=== PATIENT | female | born 1985 | race Caucasian/White ===

== ENCOUNTER 2017-07-12 13:21 | Outpatient (CLI) | payer OTHER ==
--- NOTE | 2017-07-12 17:21 | CT ---
ABDOMEN CT WITHOUT CONTRAST PELVIC CT WITHOUT CONTRAST: Date: 07/12/17 HISTORY: Left flank pain. Evaluate for renal calculi. Symptoms x1 day. COMPARISON: 08/10/16. TECHNIQUE: An abdomen and pelvis CT are performed without IV or oral contrast. Coronal reformatted images are abraham bmitted for interpretation. FINDINGS: ABDOMEN CT: Visualized lung bases are clear. Limited evaluation of the solid organs by the lack of IV contrast. G rossly, no solid organ abnormality. Gallbladder is unremarkable. No gastrohepatic, retrocrural, or periportal lymphadenopathy. There are nonspecific, nonenlarged mesenteric lymph nodes. No mass, lymphadenopathy, or free air. Ventral abdominal hernia containing mesenteric fat is noted. No bowel herniation. The aforementioned hernia is very small. Bilaterally, no hydronephrosis or perinephric fat stranding. Punctate nonobstructing calculus in the right kidney measuring approximately 1.0 mm. Bilateral ureters have a normal caliber. No hydroureter, periureteral fat stranding, or ureterolithiasis. Limited evaluation of the alimentary canal due to lack of oral contrast. No evidence of bowel obstruc tion. Ileocecal junction is normal. Normal caliber appendix. Fecal material in a nondistended, nondil ated colon. CT evidence of diverticulosis without evidence of diverticulitis. PELVIC CT: Uterus and adnexa are unremarkable. No calcification in urinary bladder. No pelvic mass, lymphadenopa thy, free air, or free fluid. There are no osteoblastic or osteolytic lesions. IMPRESSION: 1. Nonobstructing 1.0 mm calcification in the right intrarenal collecting system. Bilaterally, no ev idence of obstructive uropathy. 2. Normal caliber appendix. POS: [facility]
== END 2017-07-12 13:22 | disposition home or self-care (01) ==
LOC: CT 13:21
PROVIDERS: ATTEND Family Medicine
DX: R10.9 Unspecified abdominal pain (principal)
CPT/HCPCS: 74176

== ENCOUNTER 2017-08-19 10:34 | Day surgery (SDC) | payer OTHER ==
[2017-08-18 09:41] VITALS: BMI 27.4
--- NOTE | 2017-08-19 14:10 | OP ---
DATE OF PROCEDURE: 08/19/2017 PROCEDURES PERFORMED: 1. Esophagogastroduodenoscopy. 2. Colonoscopy. POSTPROCEDURE DIAGNOSES: 1. Normal upper endoscopy, normal esophagus, stomach, and duodenum. 2. Normal ileum. 3. Normal colon exam. PREMEDICATION: Given by Anesthesiology Department. PREPROCEDURE DIAGNOSES: Chronic left-sided abdominal pain, gastroesophageal reflux disease, normal u ltrasound and abdominal pelvic CT. PROCEDURE IN DETAIL: Written consent was obtained prior to procedure. After adequate sedation, the forward-viewing endoscope was advanced down the stomach under direct vision to the second portion of duodenum. Both the second portion and the bulb appeared normal. The third portion was also visualiz ed and appeared normal. The pylorus was patent. The gastric antrum, body, fundus, and cardia all ap peared normal. Retroflexion did not show any abnormality. The GE junction and esophagus appeared no rmal. Z-line was noted at 41 cm. The patient was then repositioned for colon exam. A digital exam performed was normal. The quality of the bowel prep was good. The endoscope was advanced to the distal ileum. The terminal ileum appe ared normal. The ileocecal valve and appendiceal orifice were visualized and appeared normal. The c ecum, ascending colon, hepatic flexure, transverse colon, splenic flexure, descending colon, and rect osigmoid colon all appeared normal. Retroflexion did not show any abnormality. ASSESSMENT: 1. Normal upper endoscopy. 2. Normal ileal colonoscopy. PLAN: 1. Trial of antispasmodic dicyclomine 10 mg t.i.d. and low dose amitriptyline 10 mg at bedtime. 2. Follow up in GI office in 4 weeks.
[2017-08-19] MEDS ORDERED: Lidocaine 1% PF 5 ML VIAL ONE (15:20)
[2017-08-19] MEDS ORDERED: Propofol 200 MG/20 ML VIAL ONE (15:20)
== END 2017-08-19 13:54 | disposition home or self-care (01) ==
LOC: SDC 10:34
PROVIDERS: ATTEND Internal Medicine Gastroenterology
PROC: 0DJD8ZZ Inspection of Lower Intestinal Tract, Via Natural or Artificial Opening Endoscopic (ICD-10-PCS; principal; 2017-08-19)
PROC: 0DJ08ZZ Inspection of Upper Intestinal Tract, Via Natural or Artificial Opening Endoscopic (ICD-10-PCS; principal; 2017-08-19)
DX: R10.12 Left upper quadrant pain (principal); K21.9 Gastro-esophageal reflux disease without esophagitis; Z88.1 Allergy status to other antibiotic agents; Z88.8 Allergy status to other drugs, medicaments and biological substances; Z79.899 Other long term (current) drug therapy; Z90.89 Acquired absence of other organs; Z98.890 Other specified postprocedural states
CPT/HCPCS: J2001; J2704

== ENCOUNTER 2017-11-05 14:53 | Outpatient (CLI) | payer OTHER | END 2017-11-05 14:54 | disposition home or self-care (01) | LOC: BICMAMMO 14:53 | PROVIDERS: ATTEND Obstetrics & Gynecology | DX: N63.20 Unspecified lump in the left breast, unspecified quadrant (principal); Z80.3 Family history of malignant neoplasm of breast | CPT/HCPCS: 77066; G0279 ==

== ENCOUNTER 2018-02-25 14:34 | Outpatient (CLI) | payer OTHER ==
--- NOTE | 2018-02-25 15:16 | ULT ---
THYROID ULTRASOUND: Date: 02/25/18 COMPARISON: 02/05/17. HISTORY: Multinodular goiter. TECHNIQUE: Multiplanar Hinojosa scale and color Doppler images were obtained in a thyroid ultrasound. FINDINGS: There are tiny nodules scattered throughout both thyroid lobes. None of these are larger than 1.0 cm in size. The largest nodule is seen on the right measuring 8.0 mm in greatest dimension. These nodule s are well circumscribed and without suspicious calcifications. The thyroid lobes each measure 3.8 cm in length. IMPRESSION: Stable small thyroid nodules. POS: [facility]
== END 2018-02-25 14:35 | disposition home or self-care (01) ==
LOC: SCSULT 14:34
PROVIDERS: ATTEND Specialist
DX: E04.2 Nontoxic multinodular goiter (principal)
CPT/HCPCS: 76536

== ENCOUNTER 2018-05-20 15:56 | Outpatient (CLI) | payer OTHER ==
--- NOTE | 2018-05-20 17:33 | MRI ---
CERVICAL SPINE MRI WITHOUT CONTRAST: 05/20/18 HISTORY: Cervical radiculopathy. COMPARISON: None. TECHNIQUE: Cervical spine MRI is performed without intravenous gadolinium administration. Multisequential, multi planar imaging is performed. FINDINGS: Straightening of the normal cervical lordosis. Findings may be due to patient position or muscle spas m. No evidence of ligamentous injury. No evidence of vertebral body edema. No fracture. Appropriate T1 marrow signal intensity of the cervical vertebrae. The visualized brain parenchyma, ce rvicomedullary junction, cervical cord, and the upper thoracic cord have a normal size and signal int ensity. C2-C3: No significant disc osteophyte complex. No significant central canal stenosis. Foramina are pa tent. C3-C4: No significant disc osteophyte complex. No significant central canal stenosis. Foramina are pa tent. C4-C5: No significant disc osteophyte complex. No significant central canal stenosis. Foramina are pa tent. C5-C6: There is minimal loss of disc space height. Minimal generalized disc bulge without significant central canal stenosis. Neural foramina are patent. C6-C7: No significant disc osteophyte complex. No significant central canal stenosis. Neural foramina are patent. C7-T1: No significant disc osteophyte complex. No significant central canal stenosis. Neural foramina are patent. IMPRESSION: No significant central canal stenosis or foraminal narrowing. POS: [facility]
== END 2018-05-20 15:57 | disposition home or self-care (01) ==
LOC: MRI 15:56
PROVIDERS: ATTEND Orthopaedic Surgery
DX: M54.12 Radiculopathy, cervical region (principal)
CPT/HCPCS: 72141

== ENCOUNTER 2019-07-09 11:48 | Emergency (ER) | payer OTHER ==
[2019-07-09 12:22] LABS: Bilirubin Negative (Negative); Blood, Urine Large (Negative); Glucose, Urine (Dipstick) Negative (Negative); Leukocyte Negative (Negative); Nitrite Negative (Negative); Protein, Urine (Dipstick) Negative (Neg-Trace); Urobilinogen 0.2 mg/dL (Less than 2)
[2019-07-09 12:24] LABS: #Basophils 0.1 thou/uL (0.0-0.2); #Eosinphils 0.1 thou/uL (0.0-0.7); #Lymphocytes 1.8 thou/uL (1.20-3.40); #Monocytes 0.4 thou/uL (0.11-0.59); #Neutrophils 3.5 thou/uL (1.40-6.50); %Basophils 1.4 % (0.0-1.0); %Eosinophils 1.2 % (0.0-10.0); %Lymphocytes 30.3 % (21.0-51.0); %Monocytes 7.2 % (0.0-10.0); %Neutrophils 59.9 % (42.0-75.0); Hemoglobin 12.8 g/dL (12.0-16.0); Mean Corpuscular HGB CONC 33.8 g/dL (32.0-36.0); Mean Corpuscular Hemoglobin 31.1 pg (27.0-31.0); Mean Platelet Volume 11.5 fL (7.4-10.4); Platelet Count 152 thou/uL (130-400); White Blood Cell (WBC) Count 5.9 thou/uL (4.8-10.8)
[2019-07-09 12:28] LABS: Clarity Hazy (Clear)
[2019-07-09 12:29] LABS: Bacteria/HPF Rare-Few HPF (None Seen); WBC/HPF None Seen HPF (0-3)
--- NOTE | 2019-07-09 13:41 | ULT ---
US Pelvic Transvag, and Transabdominal HISTORY: Vaginal bleeding COMPARISON: None TECHNIQUE: Multiple grayscale and color Doppler images were obtained in a transabdominal and transvag inal pelvic ultrasound. Spectral analysis of the Doppler waveforms of the ovaries were performed. FINDINGS: UTERUS: Normal in size without focal abnormality. ENDOMETRIAL STRIPE: 5 mm. No free fluid is present. Mild prominence of pelvic vasculature, nonspecific. RIGHT OVARY: Normal flow, without focal mass. LEFT OVARY: Normal flow, without focal mass. IMPRESSION: No acute pelvic abnormality No evidence of intrauterine gestation. Therefore on the basis of this exam, ectopic cannot be excluded. Correlate with serial beta hCG values, as well as imaging follow-up for continued assessment.
== END 2019-07-09 14:25 | disposition home or self-care (01) ==
LOC: SCSER 11:48
DX: O20.0 Threatened abortion (principal); O99.611 Diseases of the digestive system complicating pregnancy, first trimester; K21.9 Gastro-esophageal reflux disease without esophagitis; Z3A.01 Less than 8 weeks gestation of pregnancy
CPT/HCPCS: 76856; 81003; 81015; 84702; 85025

== ENCOUNTER 2019-09-12 08:15 | Day surgery (SDC) | payer OTHER ==
[2019-09-04 16:46] VITALS: BMI 28.5
--- NOTE | 2019-09-11 08:41 | HP ---
REASON FOR ADMISSION: Chronic pelvic pain. SCHEDULED PROCEDURE: Diagnostic laparoscopy, possible excision of endometriosis. HISTORY OF PRESENT ILLNESS: Ms. Lyon is a 34-year-old, who has been my patient for greater than 10 years. She has had 2 vaginal deliveries and has a history of progressively worsening chronic pelvic pain. She desires diagnostic laparoscopy to rule out endometriosis. She previously had a CT scan last year, which revealed some kidney stones, but also dilated ovarian veins. Her history is somewhat concerning for endometriosis, but certainly may be more of a case of pelvic congestion syndrome as well. [employer] HISTORY: Noted. The patient had a history of dysplasia in the cervix, which is resolved. She uses for control and has had 2 spontaneous vaginal deliveries. PAST MEDICAL HISTORY: Significant for anxiety. PAST SURGICAL HISTORY: Vulvar resection, wisdom tooth, tonsils, and colonoscopy. ALLERGIES: NONE. MEDICATIONS: 1. Astelin. 2. Clotrimazole. 3. Nasacort. SOCIAL HISTORY: Denies tobacco, alcohol, or drug abuse. FAMILY HISTORY: Noncontributory for endometriosis. PHYSICAL EXAMINATION: GENERAL: White female. VITAL SIGNS: Height 5 feet 6 inches, weight 174, BMI 28. Blood pressure 116/80, pulse 100, and respirations 18. HEENT: Within normal limits. LUNGS: Clear to auscultation bilaterally. HEART: Regular rate and rhythm. BREASTS: No masses bilaterally. ABDOMEN: Soft and nontender. No rebound or guarding. : Vulvar lesions. Vagina, discharge. Cervix, parous. Uterus anteverted. No adnexal mass. Uterus, normal size. The patient is tender in the left adnexa in the left uterosacral area. No nodularity is noted. EXTREMITIES: No clubbing, cyanosis, or edema. IMPRESSION: Chronic pelvic pain, unresponsive to medical management with features concerning for endometriosis and/or pelvic congestion syndrome. PLAN: Diagnostic laparoscopy, possible excision of endometriosis. We will administer appropriate antibiotic and DVT prophylaxis. The patient understands risks and benefits of procedure including, negative findings, bleeding, infection, and injury to organs in the pelvis as well as incomplete removal of endometriosis. Job ID: [id number]
[2019-09-11 15:27] LABS: BHCG - Serum Negative (NEGATIVE); Pregs Control Background? CLEAR/WHITE (CLR/WHITE); Pregs Control Bar Appear? YES (CONTROL BAR)
[2019-09-11 15:30] LABS: Hemoglobin 12.7 g/dL (12.0-16.0); Mean Corpuscular HGB CONC 34.5 g/dL (32.0-36.0); Mean Corpuscular Hemoglobin 32.6 pg (27.0-31.0); Mean Corpuscular Volume 94.5 fL (78.0-98.0); Platelet Count 163 thou/uL (130-400); RBC Distribution Width 10.9 % (11.5-14.5); Red Blood Cell (RBC) Count 3.91 mill/uL (4.20-5.40); White Blood Cell (WBC) Count 6.2 thou/uL (4.8-10.8)
[2019-09-12] MEDS ORDERED: CeleCOXIB 100 MG CAP ONE (08:48)
[2019-09-12] MEDS ORDERED: Gabapentin 300 MG CAP ONE (08:48)
[2019-09-12] MEDS ORDERED: Famotidine/PF 20 mg/2ml Vial ONE (08:49)
[2019-09-12] MEDS ORDERED: Glycopyrrolate 0.2 MG/ML 5 ML SYRINGE ONE (09:36)
[2019-09-12] MEDS ORDERED: Lidocaine 1% PF 5 ML VIAL ONE (09:36)
[2019-09-12] MEDS ORDERED: Ondansetron PF 4 MG/2 ML Vial ONE (09:36)
[2019-09-12] MEDS ORDERED: PROPOFOL 200 MG/20 ML VIAL ONE (09:36)
[2019-09-12] MEDS ORDERED: Rocuronium Bromide 10 MG/ML (10ML VIAL) ONE (09:36)
[2019-09-12] MEDS ORDERED: Dexamethasone 20 MG/5 ML VIAL ONE (09:36)
[2019-09-12] MEDS ORDERED: Midazolam HCl 2 mg/2 ml Vial ONE (09:43)
[2019-09-12] MEDS ORDERED: Fentanyl 100 MCG/2 ML VIAL ONE (09:43)
[2019-09-12] MEDS ORDERED: Bupivacaine PF 0.5% 30 ML VIAL ONE (09:50)
[2019-09-12] MEDS ORDERED: HYDROcodone/Acetaminophen 5/325 mg Tablet ONE (13:28)
--- NOTE | 2019-09-13 09:06 | OP ---
DATE OF PROCEDURE: 09/12/2019 PREOPERATIVE DIAGNOSIS: Chronic pelvic pain, left greater than right with CT findings suggestive of chronic congestion syndrome of the pelvis. POSTOPERATIVE DIAGNOSES: Chronic pelvic pain, left greater than right with CT findings suggestive of chronic congestion syndrome of the pelvis plus visual documentation of left-sided pelvic congestion syndrome and possible right uterosacral ligament endometriosis. PROCEDURE PERFORMED: Diagnostic laparoscopy with laparoscopic excision of right uterosacral ligament lesion with da Pablo. ANESTHESIA: General endotracheal. ESTIMATED BLOOD LOSS: Less than 10 mL. COMPLICATIONS: None. DRAINS: Hoff to gravity. MEDICATIONS: 2 g Ancef preincision. OPERATIVE FINDINGS: 1. Normal-appearing omentum, liver edge, and bowel. 2. No evidence of endometriosis in the anterior cul-de-sac. 3. No evidence of endometriosis of the right ovarian fossa. 4. Red lesions consistent with possible early endometriosis of the uterosacral ligament on the right at its insertion into the cervix medial to the ureter, excised. 5. No evidence of endometriosis in the left side of the pelvis, but extensive varicosities consistent with pelvic congestion syndrome photodocumented. 6. No evidence of indirect or direct inguinal hernia laparoscopically. COUNTS: Correct with clear urine at the end of procedure. DISPOSITION: Recovery room in good condition. DESCRIPTION OF PROCEDURE: After obtaining appropriate informed consent, the patient was taken to the operating room, where general endotracheal anesthesia was achieved without difficulty. The patient was prepped and draped in dorsal lithotomy position in Emil stirrups. Sliding speculum was placed in vagina. Cervix was identified and grasped with single-tooth tenaculum, sounded to 7 cm. KENN manipulator without vaginal template checker cup was placed using a 6 cm obturator. Speculum and tenaculum were removed. Hoff catheter was placed and power sewing machine operator changed his gloves and turned attention to abdominal portion of procedure. A 5 mL of Marcaine was injected to the superior aspect of the umbilicus, and a 12 mm skin incision was made. Veress needle was placed inside the abdominal cavity. Insufflation was carried out with carbon dioxide at max pressure of 15, volume approximately 3.5 L. A 12 mm trocar was introduced into the abdominal cavity. At this level, the patient was placed in steep Trendelenburg position. The right and left lateral da Pablo 8 mm ports were placed under direct visualization. Survey of the abdomen and pelvis was carried out with findings as noted in the operative findings. Of note, there really was significant difference between the right and left to the degree of varicosities and congestion noted in the IP and broad ligament. No obvious abnormality accounting for this was noted, however. Thorough inspection of the pelvis was carried out and one area consistent with probable endometriosis was noted at the level of the insertion of the uterosacral ligament on the patient's right into this posterior aspect of the cervix. The ureter was well visualized to the peritoneum on the right. It was noted to be lateral to this area. Da Pablo robot was docked using monopolar scissors and [place] bipolar forceps. The peritoneum under this area was opened and excised. The specimen was removed and placed in the anterior cul-de-sac. Good hemostasis was noted. Again, the ureter was noted to be well lateral. No other areas for excision were noted. The da Pablo was undocked. The peritoneal incision specimen from the right uterosacral ligament was removed through the one of the lateral trocars, and the abdomen was desufflated of carbon dioxide x3. Trocars were removed. Fascia was reapproximated at the umbilicus using a 0 Vicryl on a UR5 needle. Skin was reapproximated x3 using 4-0 Monocryl and Dermabond. Hulka manipulator was removed. Hoff catheter was removed. The patient awakened and extubated to recovery room in good condition. Job ID: [id number]
== END 2019-09-12 14:21 | disposition home or self-care (01) ==
LOC: SDC 08:15
PROVIDERS: ATTEND Obstetrics & Gynecology
PROC: 0UB48ZZ Excision of Uterine Supporting Structure, Via Natural or Artificial Opening Endoscopic (ICD-10-PCS; principal; 2019-09-12)
DX: N83.8 Other noninflammatory disorders of ovary, fallopian tube and broad ligament (principal); G89.29 Other chronic pain; R10.2 Pelvic and perineal pain; F41.9 Anxiety disorder, unspecified; Z79.899 Other long term (current) drug therapy; Z91.048 Other nonmedicinal substance allergy status
CPT/HCPCS: 84703; 85027; 86850; 86900; 86901; 88305; J0690; J1100; J2001; J2250; J2405; J2704; J3010; S0020; S0028

== ENCOUNTER 2020-03-11 07:45 | Outpatient (CLI) | payer OTHER ==
--- NOTE | 2020-03-11 11:05 | MRI ---
BRAIN MRI WITHOUT CONTRAST: Date: 03/11/2020 COMPARISON: None. HISTORY: Tingling around the mouth for 2 weeks. Hemiparesthesia. TECHNIQUE: Multiplanar, multisequence MR imaging of the brain obtained without contrast. FINDINGS: The diffusion-weighted imaging demonstrates no evidence for acute infarction. No evidence for intracr anial hemorrhage is noted on the axial gradient echo imaging. The visualized paranasal sinuses/mastoid air cells demonstrate normal signal intensity. Arterial flow -voids at the axial level of the skull base appear grossly unremarkable on the T2-weighted imaging. No midline shift, mass effect, or ventricular enlargement. IMPRESSION: Unremarkable noncontrast enhanced brain MRI. POS: [facility]
== END 2020-03-11 07:46 | disposition home or self-care (01) ==
LOC: TBSIIMAG 07:45
PROVIDERS: ATTEND Family Medicine
DX: R20.2 Paresthesia of skin (principal)
CPT/HCPCS: 70551

== ENCOUNTER 2021-05-19 11:27 | Outpatient (CLI) | payer OTHER | END 2021-05-19 11:28 | disposition home or self-care (01) | LOC: BICRAD 11:27 | PROVIDERS: ATTEND Family Medicine | DX: M25.552 Pain in left hip (principal) | CPT/HCPCS: 72170 ==

== ENCOUNTER 2023-08-24 11:13 | Outpatient (CLI) | payer OTHER | END 2023-08-24 11:14 | disposition home or self-care (01) | LOC: SCSRAD 11:13 | PROVIDERS: ATTEND Family Medicine | DX: R05.9 Cough, unspecified (principal) | CPT/HCPCS: 71046 ==

== ENCOUNTER 2024-09-01 12:45 | Outpatient (CLI) | payer BC ==
[2024-09-01] MEDS ORDERED: Sincalide 5 MCG VIAL ONE (13:58)
[2024-09-01] MEDS ORDERED: Sterile Water 10 ML ONE (13:59)
[2024-09-01] MEDS ORDERED: Bacteriostatic Normal Saline 30 ML VIAL ONE (13:59)
== END 2024-09-01 12:46 | disposition home or self-care (01) ==
LOC: NM 12:45
PROVIDERS: ATTEND Internal Medicine Gastroenterology
DX: R10.13 Epigastric pain (principal); R07.9 Chest pain, unspecified
CPT/HCPCS: 78227; A9537; J2805